=== PATIENT | male | born 1965 | race African-American/Black ===

== ENCOUNTER → 2021-03-05 | Outpatient (CLI) | payer OTHER ==
--- NOTE | 2021-03-06 15:51 | SLEEP ---
DATE OF STUDY: 03/05/2021 OBJECTIVE: The patient is a 55-year-old male with previous study 04/08/2019 at [facility] showing severe sleep apnea and hypopnea with recommendation to start CPAP at 15 cm. The patient returned to the lab for a split night study. Height 5 feet 11 inches, weight 446 pounds, body mass index 62. [place] sleep score 12. INTERPRETATION: Sleep architecture is characterized by a sleep efficiency of 58% across to 9 hours of recording time. There is a decreased amount of REM sleep. The sleep onset latency was 57 minutes. The study was done in a split night fashion. After treatment, there are total of 109 respiratory events for an apnea-hypopnea index of 83.3 events per hour of sleep. The patient is titrated on CPAP and BiPAP. At a BiPAP S/T setting of 27/23, rate of 8, the apnea-hypopnea index falls to 0.7 events per hour of sleep. The minimum oxygen saturation is 84%. There were no significant amounts of periodic limb movements of sleep or cardiac arrhythmias. IMPRESSION: Abnormal polysomnogram showing severe obstructive sleep apnea and hypopnea, treatable on a BiPAP setting of 27/23, rate of 8 using a [employer]Med Mirage Quattro full face mask, medium size. RECOMMENDATIONS: 1. The patient should be started on the above setting. 2. The patient should avoid sedatives and alcohol in the supine position and pursue weight loss. Thank you letting us to help with the patient's care. HAYLEE DR: Amanda TID: [id number] CC: LISSET PHILLIPS MD, MARKEL GUERRA MD
== END ==
LOC: SLPLAB 19:10
PROVIDERS: ATTEND Family Medicine
DX: G47.33 Obstructive sleep apnea (adult) (pediatric) (principal); E66.01 Morbid (severe) obesity due to excess calories; Z68.44 Body mass index [BMI] 60.0-69.9, adult
CPT/HCPCS: 95810